=== PATIENT | female | born 1975 ===

== ENCOUNTER 2017-07-16 13:22 | Emergency (ER) | payer OTHER ==
--- NOTE | 2017-07-16 14:11 | C.PDOC ---
History Of Present Illness 41 y/o female presents to the ED complaining of digitally and positionally reproducible pain to the left upper chest x 3 days. No acute injury. Patient works in a factory loading boxes. She denies any SOB, palpitations, dizziness, abdominal pain, or URI symptoms. Time Seen by Provider: 07/16/17 13:56 Chief Complaint (Nursing): Chest Pain History Per: Patient History/Exam Limitations: no limitations Onset/Duration Of Symptoms: Days Current Symptoms Are (Timing): Still Present Past Medical History Reviewed: Historical Data, Nursing Documentation, Vital Signs Vital Signs: Last Vital Signs Temp 98.5 F 07/16/17 14:32 Pulse 80 07/16/17 14:32 Resp 18 07/16/17 14:32 BP 142/88 07/16/17 14:32 Pulse Ox 96 07/16/17 14:32 - Medical History PMH: No Chronic Diseases Surgical History: Family History: States: No Known Family Hx - Social History Hx Tobacco Use: No Hx Alcohol Use: No Hx Substance Use: No - Immunization History Hx Tetanus Toxoid Vaccination: No Hx Influenza Vaccination: No Hx Pneumococcal Vaccination: No Review Of Systems Except As Marked, All Systems Reviewed And Found Negative. Cardiovascular: Positive for: Chest Pain. Negative for: Palpitations Respiratory: Negative for: Cough, Shortness of Breath Gastrointestinal: Negative for: Nausea, Vomiting Neurological: Negative for: Dizziness Physical Exam - Physical Exam Appears: Non-toxic, No Acute Distress Skin: Normal Color, Warm, Dry Head: Atraumatic, Normacephalic Eye(s): bilateral: Normal Inspection, PERRL, EOMI Nose: Normal Oral Mucosa: Moist Neck: Normal ROM, Supple Chest: Symmetrical, Tenderness (Digitally reproducible pain between intercostal T2-T3 and along left mid-clavicular line) Cardiovascular: Rhythm Regular, No Murmur Respiratory: Normal Breath Sounds, No Rales, No Rhonchi, No Wheezing Gastrointestinal/Abdominal: Soft, No Tenderness, No Distention Extremity: Normal ROM, No Calf Tenderness, No Swelling Pulses: Left Dorsalis Pedis: Normal, Right Dorsalis Pedis: Normal Neurological/Psych: Oriented x3, Normal Speech ED Course And Treatment ECG: Interpreted By Me ECG Rhythm: Sinus Rhythm ECG Interpretation: Normal Rate From EC O2 Sat by Pulse Oximetry: 100 (RA) Pulse Ox Interpretation: Normal Medical Decision Making Medical Decision Making: Impression: digitally and positionally reproducible L upper chest/pectoralis discomfort gradual onset, no SOB, digitally and positionally reproducible, works boxing clothing- repetitive movements, normal EKG HR 60, normal O2Sat c/w costochondritis and NOT ACS Progress: EKG is normal Pt stable for d/c home Advised nsaids and ice, no heavy lifting Disposition Doctor Will See Patient In The: Office Counseled Patient/Family Regarding: Studies Performed, Diagnosis - Disposition Referrals: [facility] [Outside] [facility] [Outside] Disposition: HOME/ ROUTINE Disposition Time: 14:10 Condition: GOOD Additional Instructions: bolsa de hielo 1/2 hora por hora, nada caliente ibuprofeno 400-600 mg cada 6 horas regi necessario jeny las movimentos repetativos con el pecho/hombro por 1 semana EKG normal- NO tiene problemas con brito nikos! Instructions: Costochondritis Forms: [employer] (Polish) Print Language: GUAMANIAN - Clinical Impression Clinical Impression: Chest wall discomfort - Scribe Statement The provider has reviewed the documentation as recorded by the Scribe (Sandra Crawley) Provider Attestation: All medical record entries made by the Scribe were at my direction and personally dictated by me. I have reviewed the chart and agree that the record accurately reflects my personal performance of the history, physical exam, medical decision making, and the department course for this patient. I have also personally directed, reviewed, and agree with the discharge instructions and disposition.
[2017-07-16 14:33] VITALS: BP 142/88; PULSE 80; RESP 18; TEMP 98.5
[2017-07-16 17:35] VITALS: O2SAT 100
--- NOTE | 2017-07-20 23:04 | CARD ---
APPROVED REPORT EKG Measurement Heart [id number] <Conclusion> Normal sinus rhythm Normal ECG
== END 2017-07-16 14:33 | disposition home or self-care (01) ==
LOC: C.ER 13:22
DX: R07.89 Other chest pain (principal)